=== PATIENT | female | born 1990 | race Caucasian/White ===

== ENCOUNTER 2018-10-21 12:29 | Day surgery (SDC) | payer OTHER ==
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
[2018-10-21 13:08] VITALS: BMI 22.6
[2018-10-21 13:09] VITALS: BP 149/101; TEMP 98.4
[2018-10-21 13:47] LABS: #Eosinphils 0.1 thou/uL (0.0-0.7); #Lymphocytes 1.1 thou/uL (1.20-3.40); #Monocytes 0.9 thou/uL (0.11-0.59); #Neutrophils 6.2 thou/uL (1.40-6.50); %Basophils 0.3 % (0.0-1.0); %Eosinophils 0.8 % (0.0-10.0); %Lymphocytes 13.6 % (21.0-51.0); %Monocytes 10.3 % (0.0-10.0); Mean Corpuscular HGB CONC 35.6 g/dL (32.0-36.0); Mean Corpuscular Hemoglobin 31.9 pg (27.0-31.0); Mean Corpuscular Volume 89.5 fL (78.0-98.0); Mean Platelet Volume 7.4 fL (7.4-10.4); Platelet Count 199 thou/uL (130-400); RBC Distribution Width 11.9 % (11.5-14.5); Red Blood Cell (RBC) Count 3.76 mill/uL (4.20-5.40); White Blood Cell (WBC) Count 8.3 thou/uL (4.8-10.8)
[2018-10-21 14:07] LABS: ALT (SGPT) 40 U/L (8-55); AST (SGOT) 23 U/L (5-34); Albumin 3.5 g/dL (3.5-5.0); Alkaline Phosphatase 183 U/L (40-150); Anion Gap 11 mmol/L (10-20); BUN (Urea Nitrogen) 5 mg/dL (7.0-18.7); Bilirubin, Total 0.4 mg/dL (0.2-1.2); Calc. Creatinine Clearance 124 mL/min (70-130); Calcium 8.6 mg/dL (7.8-10.44); Carbon Dioxide 21 mmol/L (22-29); Chloride 106 mmol/L (98-107); Estimated GFR-MDRD Greater than 90; Globulin 2.6 g/dL (2.4-3.5); Glucose 113 mg/dL (70-105); Potassium 3.3 mmol/L (3.5-5.1); Protein, Total 6.1 g/dL (6.0-8.3); Sodium 135 mmol/L (136-145)
[2018-10-21 14:24] LABS: Creatinine, Urine 90.75 mg/dL (47-110)
--- NOTE | 2018-10-21 14:41 | PDOC.EVN ---
Event Note - Event Note Event Note: Reviewed results: Urine prot:cr ratio 0.275 Creatinine 0.71 Platelet count 199 AST/ALT BPs: 140/92, 153/88, 146/87, 139/92, 134/89, 134/89 US results based on verbal report from rewind operator BPP: 12/24 MARY JANE 14.6 Growth: EFW 2489g measuring 35.1 WGA Will continue to monitor BP's for a total of 24 hours
--- NOTE | 2018-10-21 14:53 | ULT ---
ULTRASOUND BIOPHYSICAL PROFILE: 10/21/18 HISTORY: 28-year-old female with gestational hypertension and pre-eclampsia. FINDINGS: breathin tone: 2 movement: 2 Amniotic fluid volume: 2 IMPRESSION: Normal biophysical profile score of 8/8, excluding the non-stress test. jn [] POS: TPC
--- NOTE | 2018-10-21 15:08 | ULT ---
ULTRASOUND OBSTETRICAL COMPLETE: DATE: 10/21/2018. HISTORY: Gestational hypertension and preeclampsia in 28-year-old female. FINDINGS: number: [place]. lie: Cephalic. Maternal cervix: Obscured by shadowing from the head. Placenta: Right lateral. No placenta previa. Amniotic fluid volume: MARY JANE 14.5 cm. heart rate: 153 b.p.m. anatomy not evaluated in detail. biometry: Head circumference (HC): 32.4 cm 36 w 5 d Biparietal diameter (BPD): 3.6 cm 34 w 5 d Abdominal circumference (AC): 30.3 cm 34 w 2 d Femur length (FL): 6.7 cm 34 w 5 d Average ultrasound age (AUA): 35 w 1 d Estimated date of delivery (OMAR): 11/24/2018. Last menstrual period (LMP): 02/19/2018. Gestational age by LMP: 34, 6 d. Estimated weight (EFW): 2,489 g +/- 368 g (5 lb 8 oz +/- 13 oz). IMPRESSION: 1. Live third trimester intrauterine gestation. 2. Estimated gestational age of 35 weeks, 1 day. 3. Vertex lie. SUMIT Miranda POS: TPC
--- NOTE | 2018-10-21 16:59 | PDOC.EVN ---
Event Note - Event Note Event Note: BP's reviewed and no severe range pressures while being monitored over last 4 hours. Multiple mild range pressures. Patient asymptomatic Lab results normal Will d/c patient home with close f/u and instructed her to continue checking BP' s. Will send with 24 hour urine protein collection as prot:cr ratio close to 0.3. Gave return precautions
[2018-10-22 19:26] LABS: Urine Total Volume 2200 mL (600-1600)
[2018-10-22 19:56] LABS: Protein - 24 Hr 264 mg/24 hr (Less than 300); Protein, Urine 12 mg/dL (1-14)
== END 2018-10-21 17:15 | disposition home or self-care (01) ==
LOC: L&D/OP 12:29
PROVIDERS: ATTEND Family Medicine
DX: O16.3 Unspecified maternal hypertension, third trimester (principal); O26.843 Uterine size-date discrepancy, third trimester; O99.333 Smoking (tobacco) complicating pregnancy, third trimester; F17.210 Nicotine dependence, cigarettes, uncomplicated; Z3A.35 35 weeks gestation of pregnancy; Z79.82 Long term (current) use of aspirin
CPT/HCPCS: 36415; 76815; 76819; 80053; 82570; 84156; 85025; 99285

== ENCOUNTER 2018-11-10 15:26 | Inpatient (IN) | payer OTHER ==
[~2018-11-10 15:26] MED LIST: Bupivacaine/Epinephrine 0.25% 30 ML VIAL ONE
[2018-11-10] MEDS ORDERED: hydrALAZINE 20 MG/ML VIAL SLOW IVP PRN ×3 (15:33→19:31)
[2018-11-10] MEDS ORDERED: Ibuprofen 800 MG TAB PO PRN (15:36)
[2018-11-10] MEDS ORDERED: Lidocaine 1% (PF) 30 ML VIAL SC PRN (15:36)
[2018-11-10] MEDS ORDERED: NS / Oxytocin 40 units/1000ml 1,000 ML IV PRN (15:36)
[2018-11-10] MEDS ORDERED: Carboprost 250 MCG/ML AMP IM PRN (15:36)
[2018-11-10] MEDS ORDERED: Methylergonovine 0.2 MG/ML VIAL IM PRN (15:36)
[2018-11-10] MEDS ORDERED: Ondansetron PF 4 MG/2 ML Vial IVP PRN (15:36)
[2018-11-10] MEDS ORDERED: Misoprostol 200 MCG TAB PR PRN (15:36)
[2018-11-10] MEDS ORDERED: Diphenoxylate HCl/Atropine Tablet PO PRN ×2 (15:36)
[2018-11-10] MEDS ORDERED: Promethazine HCl 25 MG/ML VIAL IM PRN (15:36)
[2018-11-10] MEDS: Lactated Ringer's 1,000 ML IV SCH ×2 (16:08→20:58)
--- NOTE | 2018-11-10 16:17 | PDOC.LDHP ---
Labor and Delivery H&P Chief complaint: other (severe range BP in clinic) HPI: Ms. Leslie rai @ 37.5 wks by 6wk katherine (OMAR 11/26/18). presents as a direct transfer from clinic for severe BP readings and a non-reactive NST she has been feeling well today, baby moving like normal for her. She denies any vaginal bleeding/discharge, LOF, swelling, SOB, severe abdominal pain, nausea or vomiting. She reports a slight headache on the way over here from clinic but reports it to be resolved. She denies any changes to her vision or scomata. Dating criteria: first trimester ultrasound Grav: 1 Para: 0 Current complications: hypertension, other (S<D, recurrent UTI, ASCUS/ HPV+. prior PreE workup in hospital was negative) Previous surgical history: appendectomy, other ( gastroschesis) Allergies/Adverse Reactions: Allergies Allergy/AdvReac Type Severity Reaction Status Date / Time No Known Allergies Allergy Unverified 10/21/18 13:10 Social history: tobacco use (10-14 cigarettes a day) - Physical Exam Vital signs reviewed and normal: yes Abnormal vital signs: elevated BPs General: NAD Heart: RRR Lungs: CTAB Abdomen: gravid Extremeties: no edema FHT: category 1 (baseline 130, accels, no decels, moderate variability) - Vaginal Exam cm dilated: 3 Effacement: 50% Station: -2 - OB Labs Blood type: A RH: positive Antibody Screen: negative HIV: negative RPR: negative HEPSAg: negative GBS: negative Urine drug screen: not done Rubella: immune Additional Labs: as mentioned above - Assessment L&D Assessment: medically indicated induction - Plan Plan: admit to L&D -: sIUP - continuous monitoring - nonreactive NST in clinic - BPP pending - SVE favorable for cytotect induction - labor checks q4hr gHTN - most likely gHTN given hx. will obtain PreE labs - if pressures become severe range/symptoms develop, begin mag - medically indicated induction tobacco use during - encourage cessation Addendum - Attending - Attending Attestation Date/Time: 11/11/18 0842 I personally evaluated the patient and discussed the management with Dr. Conti on day of admission. I agree with the History, Examination, Assessment and Plan documented above with any addition or exceptions noted below. After discussion with the patient it appears that before she had elevated pressures in clinic but normal home pressures. This was also the case early in her . Her most recent pre-E workup was from >20 weeks when her home logs started demonstrating home BP elevations as well, strongly suggesting the diagnosis of gHTN. In that case we will plan for medically indicated induction regardless of labs. PreE labs sent, case discussed with Dr. Mann who will assume care for the night.
[2018-11-10 16:22] VITALS: BMI 22.6
[2018-11-10 16:30] LABS: Hemoglobin 12.6 g/dL (12.0-16.0); Mean Corpuscular Hemoglobin 31.6 pg (27.0-31.0); Mean Corpuscular Volume 90.3 fL (78.0-98.0); Mean Platelet Volume 7.9 fL (7.4-10.4); Platelet Count 230 thou/uL (130-400); RBC Distribution Width 12.2 % (11.5-14.5); Red Blood Cell (RBC) Count 3.99 mill/uL (4.20-5.40); White Blood Cell (WBC) Count 7.2 thou/uL (4.8-10.8)
[2018-11-10 16:49] LABS: #Eosinphils 0.1 thou/uL (0.0-0.7); #Lymphocytes 1.2 thou/uL (1.20-3.40); #Monocytes 0.8 thou/uL (0.11-0.59); #Neutrophils 5.1 thou/uL (1.40-6.50); %Basophils 0.4 % (0.0-1.0); %Eosinophils 1.1 % (0.0-10.0); %Lymphocytes 16.8 % (21.0-51.0); %Monocytes 11.3 % (0.0-10.0); %Neutrophils 70.5 % (42.0-75.0); ALT (SGPT) 59 U/L (8-55); AST (SGOT) 37 U/L (5-34); Albumin 3.5 g/dL (3.5-5.0); Alkaline Phosphatase 228 U/L (40-150); Anion Gap 13 mmol/L (10-20); BUN (Urea Nitrogen) 4 mg/dL (7.0-18.7); Bilirubin, Total 0.6 mg/dL (0.2-1.2); Calc. Creatinine Clearance 146 mL/min (70-130); Calcium 9.1 mg/dL (7.8-10.44); Carbon Dioxide 18 mmol/L (22-29); Chloride 106 mmol/L (98-107); Estimated GFR-MDRD Greater than 90; Globulin 2.6 g/dL (2.4-3.5); Glucose 75 mg/dL (70-105); Potassium 3.8 mmol/L (3.5-5.1); Protein, Total 6.1 g/dL (6.0-8.3); Sodium 133 mmol/L (136-145)
[2018-11-10 17:02] LABS: Syphilis Antibody Nonreactive (Nonreactive); Syphilis Antibody Index 0.07 S/CO (<1.00 Non-Reactive)
[2018-11-10 17:09] LABS: HBSAg Index 0.25 S/CO (0-0.99); Hep B Surf Ag Non-Reactive S/CO (NonReactive)
[2018-11-10 17:17] LABS: Creatinine, Urine 30.62 mg/dL (47-110); Protein, Urine Random Quant Less than 10 mg/dL (1-14)
--- NOTE | 2018-11-10 17:40 | ULT ---
Sonographic biophysical profile exam HISTORY: Nonreactive nonstress test. FINDINGS: Amniotic fluid index equals 20.5. Subjective polyhydramnios. During real-time sonography, good tone and gross movements were demonstrated. BREATHING MOVEMENTS NOT WELL VISUALIZED at sonography. Sonographic biophysical profile score 6/8.
[2018-11-10] MEDS: Misoprostol 100 MCG TAB VAG SCH (18:06)
[2018-11-10] MEDS ORDERED: Calcium Gluc 4.6 MEQ/10 ML (100 MG/ML) SLOW IVP PRN (19:17)
[2018-11-10] MEDS ORDERED: Magnesium Sulfate 20 gm/500 ml 20 GM/500 ML BAG ONE (19:19)
--- NOTE | 2018-11-10 19:25 | PDOC.EVN ---
Event Note - Event Note Event Note: Indeterminate urine pr/cr ratio since urine protein <10. However, LFT elevated, increased from baseline. No thrombocytopenia. Worsening of blood pressure to severe ranges. Will start magnesium at this time and give IV antihypertensives PRN for goal <160/<110. Continue with induction of labor. BPP 10/24, FHT cat I-II tracing at this time due to small periods of minimal variability. Will continue close monitoring and magnesium checks Addendum - Attending - Attending Attestation Date/Time: 11/10/182026 I personally evaluated the patient and discussed the management with Dr. Worthington I agree with the History, Examination, Assessment and Plan documented above with any addition or exceptions noted below. Persistent severe range blood pressures and increasing LFTs from baseline 2 weeks ago suggest progression from severe gestational htn to preeclampsia with severe features. Magnesium for seizure prophylaxis and prn IV antihypertensives for severe range BP. Cat I FHT. Anticipate
[2018-11-10] MEDS: Magnesium Sulfate 20 gm/500 ml 20 GM/500 ML BAG IVPB SCH (19:26)
[2018-11-10] MEDS ORDERED: Magnesium Sulfate 20 GM/WATER 500 ML BAG IVPB SCH (19:30)
[2018-11-10] MEDS ORDERED: Labetalol HCl 100 MG/20 ML VIAL SLOW IVP PRN (21:29)
--- NOTE | 2018-11-10 23:50 | PDOC.EVN ---
Event Note - Event Note Event Note: Magnesium check @2330 Denies DAO, SOB, chest pain, vision changes VS: Two severe BPs 160s x1, but repeat in 140s came down on own UO: >30cc/hr PE: RRR, CTAB, no edema, reflexes 2+ Fluids: LR @ 75 Magnesium: Mg at 2g/hr Continue plan of care Addendum - Attending - Attending Attestation Date/Time: 11/11/18 4742 I personally evaluated the patient and discussed the management with Dr. Worthington I agree with the History, Examination, Assessment and Plan documented above with any addition or exceptions noted below. Severe range blood pressures were during epidural placement and cuff was not placed correctly at that time. Repeat WNL. Tracing reviewed. Cat II for periods of minimal and moderate variability as well as rare late decel. Overall reassuring tracing.
--- NOTE | 2018-11-10 23:52 | PDOC.LDPN ---
Labor & Delivery Progress Note - Subjective Subjective: comfortable, vaginal pressure - Objective General: NAD, breathing through contractions Dilation: 3 Effacement: 50% Station: -2 FHT: late decelerations [place] contractions every: 2-3min Plan: continue plan of care -: sIUP -BPP 10/24 -FHT: two isolated late decelerations, CTX q2-3 hr, no cytotec for now -Patel 6, unchanged at 3/50/-2. Will recheck in two hours gHTN with likely superimposed preeclampsia -see event note -On magnesium started at 1930, q4hr mag checks -BPs stable, IV PRN hypertensives tobacco use during - encourage cessation
[2018-11-10] MEDS ORDERED: NS w/ Oxytocin 10 units 500 ML IV SCH (23:59)
[2018-11-11] MEDS: Misoprostol 100 MCG TAB VAG SCH ×5 (00:34→15:24)
[2018-11-11] MEDS ORDERED: Fentanyl 4 mcg/Bup 0.1% Cadd 100 ML ONE ×3 (00:39→17:16)
[2018-11-11] MEDS: Lactated Ringer's 1,000 ML IV SCH ×2 (01:18→03:02)
[2018-11-11] MEDS ORDERED: diphenhydrAMINE 50 MG/ML VIAL IVP PRN (02:21)
[2018-11-11] MEDS ORDERED: Lactated Ringer's 500 ML IV PRN (02:21)
[2018-11-11] MEDS ORDERED: Naloxone HCl 0.4 mg/ml Vial IVP PRN ×2 (02:21)
[2018-11-11] MEDS ORDERED: Acetaminophen 325 MG TAB PO PRN (02:21)
[2018-11-11] MEDS ORDERED: ePHEDrine/0.9% NaCl/PF SYRINGE 50 mg/10 ml SLOW IVP PRN (02:21)
[2018-11-11] MEDS ORDERED: Ondansetron PF 4 MG/2 ML Vial IVP PRN (02:21)
[2018-11-11] MEDS ORDERED: Promethazine HCl 25 MG/ML VIAL IM PRN (02:21)
[2018-11-11] MEDS ORDERED: Communication Order-Pharmacy FS SCH (02:30)
--- NOTE | 2018-11-11 02:46 | PDOC.LDPN ---
Labor & Delivery Progress Note - Subjective Subjective: comfortable - Objective Vital signs reviewed and normal: yes General: NAD, resting Dilation: 3 Effacement: 50% Station: -2 FHT: category 1 Plan: continue plan of care, pitocin for augmentation -: sIUP -BPP 10/24 -FHT: Cat I, CTX 2-3 irena -Patel 6, unchanged at 3/50/-2, start pitocin -Recheck in two hours -plans for epidural gHTN with likely superimposed preeclampsia -see event note -On magnesium started at 1930, q4hr mag checks -BPs stable, IV PRN hypertensives tobacco use during - encourage cessation
--- NOTE | 2018-11-11 02:49 | PDOC.EVN ---
Event Note - Event Note Event Note: Magnesium check @0230 Denies DAO, SOB, chest pain, vision changes VS: No severe range BPs, <160/<110 UO: >30cc/hr PE: RRR, CTAB, no edema, reflexes 2+ Fluids: LR @ 75 Magnesium: Mg at 2g/hr Continue plan of care
--- NOTE | 2018-11-11 02:53 | PDOC.LDPN ---
Labor & Delivery Progress Note - Subjective Subjective: comfortable - Objective Vital signs reviewed and normal: yes General: NAD, resting Uterine fundus: non tender Dilation: 3 Effacement: 50% Station: -2 FHT: category 2, variable decelerations [place] contractions every: 1-3min Plan: continue plan of care, labor augmentation, pitocin for augmentation -: sIUP, term -BPP 6/8 -FHT: CTX 2-3 min, few variable decels, per nurse this was during receiving epidural -Patel 6, unchanged at 3/50/-2, pit at 2, titrate up -Recheck in two hours -epidural in place gHTN with likely superimposed preeclampsia -see event note -On magnesium started at 1930, q4hr mag checks -BPs stable, IV PRN hypertensives tobacco use during - encourage cessation
[2018-11-11] MEDS: Magnesium Sulfate 20 gm/500 ml 20 GM/500 ML BAG IVPB SCH ×2 (03:57→13:47)
--- NOTE | 2018-11-11 05:46 | PDOC.LDPN ---
Labor & Delivery Progress Note - Subjective Subjective: comfortable - Objective Vital signs reviewed and normal: yes General: NAD, resting Uterine fundus: non tender Dilation: 3.5 Effacement: 50% (60) Station: -2 FHT: category 2, late decelerations [place] contractions every: 3-5min Resuscitative measures: maternal IV fluids, maternal position change Plan: continue plan of care, labor augmentation, pitocin for augmentation -: sIUP, term -BPP 6/8 -FHT: two isolated variable decels resolved with maternal position change -SVE: 3.5/60/-2, CTX have spaced out to q3-5min, pit at 4, will titrate up -Recheck in two-three hours -epidural in place gHTN with likely superimposed preeclampsia -pre E labs negative -On magnesium started at 1930, q4hr mag checks -No severe BPs ranging from 100s-130s tobacco use during - encourage cessation Addendum - Attending - Attending Attestation Date/Time: 11/11/18 3553 I personally evaluated the patient and discussed the management with Dr. Worthington I agree with the History, Examination, Assessment and Plan documented above with any addition or exceptions noted below. Strip reviewed and patient examined. FHTs 120s/periods of minimal and moderate variability/no recent decels/no recent accels CVX: 3/70/-2, ballottable Contractions-irregular with coupling + Acceleration to scalp stim Cat II Tracing for periods of minimal variability but overall reassuring as baby does still have accels to scalp stim. Minimal variability may be a result of her magnesium. Continue to titrate pitocin per protocol. BP has been mild range or normotensive. No evidence of magnesium toxicity
--- NOTE | 2018-11-11 05:50 | PDOC.EVN ---
Event Note - Event Note Event Note: Magnesium check @0530 Denies DAO, SOB, chest pain, vision changes. Patient with some pink tinged urine after schulte repositioning. Likely traumatic schulte, color has lightened with fluids. VS: No severe range BPs, <160/<110 UO: >30cc/hr PE: RRR, CTAB, no edema, reflexes 2+ Fluids: LR @ 75 Magnesium: Mg at 2g/hr Continue plan of care Recheck in 4 hours
[2018-11-11] MEDS: Fentanyl 4 mcg/Bupivacaine 0.1% Cassette 100 ML EPIDURAL SCH ×2 (09:28→17:29)
--- NOTE | 2018-11-11 11:30 | PDOC.LDPN ---
Labor & Delivery Progress Note - Subjective Subjective: comfortable, other (denies headache, vision changes, edema, scomata , numbness/tingling) - Objective Vital signs reviewed and normal: yes General: NAD Uterine fundus: non tender Dilation: 3.5 Effacement: 50% Station: -2 FHT: category 2 (baseline 120, minimal variability, few accels, no decels. ) [place] contractions every: q2-4 mins - Assessment (1) Hypertension affecting in third trimester Code(s): O16.3 - UNSPECIFIED MATERNAL HYPERTENSION, THIRD TRIMESTER Status: Acute (2) Tobacco smoking affecting in third trimester Code(s): O99.333 - SMOKING (TOBACCO) COMPLICATING , THIRD TRIMESTER Status: Acute (3) Uterine size date discrepancy Code(s): O26.849 - UTERINE SIZE-DATE DISCREPANCY, UNSPECIFIED TRIMESTER Status : Acute -: sIUP, term -FHT: Cat 1/Cat 2 strips likely seconder to magnesium -SVE: /-2, titrate pit as ctx tolerate -bulging bag, ballotable head not amenable to SROM, repeat exam q4hr -epidural in place gHTN with likely superimposed preeclampsia -pre E labs reveal elevation of LFTs from baseline, repeat pending -On magnesium started at 1930, q4hr mag checks -No severe BPs ranging from 100s-130s Mag check - no concern for ecclampsia or mag toxicity symptoms - urine output 330 over the past two hours, reflexes wnl - continue to monitor tobacco use during - encourage cessation /8 BPP with Cat1/2 strips - qshift NST continue expectant mgmt Addendum - Attending - Attending Attestation Date/Time: 11/11/18 1234 I personally evaluated the patient and discussed the management with Dr. Conti and [place]. I agree with the History, Examination, Assessment and Plan documented above with any addition or exceptions noted below. Overall reassuring status with FHTs cat 1. Change this last check. Continue mag, neuro/seizure precautions, mag checks. Recheck in 2 hours. Please note qshift NST is not correct. She is on continuous monitoring.
[2018-11-11 12:07] LABS: #Lymphocytes 0.9 thou/uL (1.20-3.40); #Monocytes 0.9 thou/uL (0.11-0.59); #Neutrophils 9.6 thou/uL (1.40-6.50); %Basophils 0.2 % (0.0-1.0); %Eosinophils 0.3 % (0.0-10.0); %Lymphocytes 8.2 % (21.0-51.0); %Monocytes 7.8 % (0.0-10.0); %Neutrophils 83.6 % (42.0-75.0); Hemoglobin 12.8 g/dL (12.0-16.0); Mean Corpuscular HGB CONC 34.6 g/dL (32.0-36.0); Mean Corpuscular Hemoglobin 31.6 pg (27.0-31.0); Mean Corpuscular Volume 91.2 fL (78.0-98.0); Mean Platelet Volume 7.9 fL (7.4-10.4); Platelet Count 218 thou/uL (130-400); RBC Distribution Width 12.5 % (11.5-14.5); Red Blood Cell (RBC) Count 4.05 mill/uL (4.20-5.40); White Blood Cell (WBC) Count 11.5 thou/uL (4.8-10.8)
[2018-11-11 12:50] LABS: ALT (SGPT) 73 U/L (8-55); AST (SGOT) 49 U/L (5-34); Albumin 3.3 g/dL (3.5-5.0); Alkaline Phosphatase 217 U/L (40-150); Anion Gap 12 mmol/L (10-20); BUN (Urea Nitrogen) 4 mg/dL (7.0-18.7); Bilirubin, Total 0.6 mg/dL (0.2-1.2); Calc. Creatinine Clearance 127 mL/min (70-130); Calcium 7.3 mg/dL (7.8-10.44); Carbon Dioxide 18 mmol/L (22-29); Chloride 105 mmol/L (98-107); Estimated GFR-MDRD Greater than 90; Glucose 89 mg/dL (70-105); Potassium 3.7 mmol/L (3.5-5.1); Protein, Total 6.3 g/dL (6.0-8.3); Sodium 131 mmol/L (136-145)
--- NOTE | 2018-11-11 14:24 | PDOC.LDPN ---
Labor & Delivery Progress Note - Subjective Subjective: comfortable - Objective Vital signs reviewed and normal: yes General: NAD Uterine fundus: non tender SVE: Dr. Dobson and nurse Dilation: 7 Effacement: 90% Station: -1 FHT: category 1 (Baseline 130s, Moderate Variability, No decels ) [place] contractions every: 3 minutes - Assessment (1) Term Code(s): Z34.90 - ENCNTR FOR SUPRVSN OF NORMAL , UNSP, UNSP TRIMESTER Current Visit: Yes Status: Acute Plan: continue plan of care, pitocin for augmentation -: 1. Term - Making cervical change - Will recheck in 2h - Continue supportive Care and Pitocin for augmentation Disposition: Stable, Continue current plan of care. Addendum - Attending - Attending Attestation Date/Time: 11/12/18 7882 I personally evaluated the patient and discussed the management with Dr. Dobson and team. I agree with the History, Examination, Assessment and Plan documented above with any addition or exceptions noted below.
[2018-11-11] MEDS ORDERED: Dextrose 5%-Lactated Ringers 1,000 ML IV SCH (14:45)
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
[2018-11-11] MEDS ORDERED: Lidocaine 1% (PF) 30 ML VIAL ONE (16:28)
[2018-11-11] MEDS ORDERED: NS / Oxytocin 40 units/1000ml 1,000 ML ONE (16:28)
[2018-11-11] MEDS ORDERED: Misoprostol 100 MCG TAB ONE (18:00)
[2018-11-11] MEDS ORDERED: Adacel (T-DAP) 0.5 ML SYRINGE IM ONE (19:08)
[2018-11-11] MEDS ORDERED: Lanolin Ointment 7 GM TUBE TOP PRN (19:08)
[2018-11-11] MEDS ORDERED: Benzocaine-Menthol 82.5 ML CAN TOP PRN (19:08)
[2018-11-11] MEDS ORDERED: Preparation H Ointment 28 GM TUBE PR PRN (19:08)
[2018-11-11] MEDS ORDERED: Milk Of Magnesia 30 ML UDCUP PO PRN (19:08)
[2018-11-11] MEDS ORDERED: Calcium Gluconate 4.6 MEQ in Sodium Chloride 0.9% 100 ML IVPB PRN (19:08)
[2018-11-11] MEDS ORDERED: hydrALAZINE 20 MG/ML VIAL SLOW IVP PRN (19:08)
[2018-11-11] MEDS ORDERED: diphenhydrAMINE 25 MG CAP PO PRN (19:08)
[2018-11-11] MEDS ORDERED: Bisacodyl 10 MG SUPP PR PRN (19:08)
[2018-11-11] MEDS ORDERED: NS / Oxytocin 40 units/1000ml 1,000 ML IV SCH (19:15)
[2018-11-11] MEDS ORDERED: Magnesium Sulfate 20 GM/WATER 500 ML BAG IVPB SCH (19:15)
--- NOTE | 2018-11-11 19:23 | PDOC.OPDEL ---
OB Operative/Delivery Note Delivery Dr/Surgeon: Mackenzie Hughes Pre-Delivery Diagnosis: medically indicated induction (preE with severe features ) Procedure/Post Delivery Dx: spontaneous vaginal delivery Weeks gestation: 37 (37.6) Anesthesia: epidural - Findings A Sex: female - 1 min: 8 - 5 min: 9 - Additional Findings/Plan Placenta delivered: spontaneous Repaired Obstetrical Laceration: 2nd degree (and a periurethral) Estimated blood loss: 800 Compilations/Other Findings: Delivering Physician: Johann English MD, PGY-2 Attending:Mackenzie Procedure: Spontaneous Vaginal Delivery Anesthesia: epidural EBL: 800 ml Pre-op Diagnosis: 1. Term intrauterine 2. PreEclampsia with severe features Post-op Diagnosis: 1. Term intrauterine , delivered 2. PreEclampsia with severe features Indications: A 28 y/o female G1 presents to L&D for severe range blood pressures , admitted and induced for preEclampsia with severe features. Delivery Note: This is 28yo F G1 @37.6wks who delivered a viable F infant at 0521. Following an antepartum course consistent with preE with severe features, a vigorous female was delivered over an intact perineum in the occipitoanterior position. Anterior Shoulder and then remainder of the body delivered. One nuchal cord. The head was held down and mouth and nares were bulb suctioned. Cord clamped (after delayed cord clamping) and cut and cord blood collected. Placenta delivered intact (in the Marquez presentation) with a 3 vessel cord noted. Fundal massage was performed and the fundus was found to have some atony. Pitocin was started, followed by cytotec 800 mcg IA, and then hemabate 250mcg IM x 1. The cervix and vagina were inspected and found to have one periurethral tear and one second degree laceration. Both repaired with a 3-0 Vicryl in the usual fashion with good approximation and hemostasis obtained. went to nursery in good condition for routine care. Apgars were 8 /9 at 1 & 5 minutes, respectively. Patient tolerated delivery well and went to after routine recovery/care. Estimated Blood Loss: 800ml Drains: Olivera to gravity draining clear urine. Post delivery plan: recovery in LICU Addendum - Attending - Attending Attestation Date/Time: 11/17/18 1207 I was present for and assisted in the entire and laceration repair performed by Dr. Johann English
[2018-11-11 20:00] LABS: Hemoglobin 10.6 g/dL (12.0-16.0); Mean Corpuscular HGB CONC 33.8 g/dL (32.0-36.0); Mean Corpuscular Hemoglobin 31.1 pg (27.0-31.0); Mean Platelet Volume 7.7 fL (7.4-10.4); Platelet Count 194 thou/uL (130-400); RBC Distribution Width 12.4 % (11.5-14.5); White Blood Cell (WBC) Count 17.5 thou/uL (4.8-10.8)
[2018-11-11] MEDS ORDERED: Diphenoxylate HCl/Atropine Tablet PO SCH (20:00)
[2018-11-11] MEDS: CEFAZOLIN 2 GM in Premix Bag 1 BAG IVPB SCH (20:11)
[2018-11-11] MEDS ORDERED: Morphine 4 MG/ML VIAL ONE (22:52)
[2018-11-11] MEDS ORDERED: Morphine 4 MG/ML VIAL SLOW IVP SCH (23:45)
[2018-11-11] MEDS: Ibuprofen 800 MG TAB PO SCH (23:48)
--- NOTE | 2018-11-12 00:41 | PDOC.EVN ---
Event Note - Event Note Event Note: Magnesium check @0000 Denies DAO, SOB, chest pain, vision changes. Some pain in right gluteal area- will give IV morphine since nauseous despite antiemetic VS: No severe range BPs, <160/<110 UO: >30cc/hr PE: RRR, CTAB, no edema, reflexes 2+ Fluids: LR @ 75 Magnesium: Mg at 2g/hr Continue plan of care Recheck in 4 hours
[2018-11-12] MEDS: Magnesium Sulfate 20 gm/500 ml 20 GM/500 ML BAG IVPB SCH ×2 (01:27→12:51)
[2018-11-12] MEDS: Docusate Calcium (SURFAK) 240 MG CAP PO SCH ×2 (03:37→09:34)
--- NOTE | 2018-11-12 04:53 | PDOC.EVN ---
Event Note - Event Note Event Note: Magnesium check @0430 Denies DAO, SOB, chest pain, vision changes. Some pain in right lower back much improved with tylenol. VS: No severe range BPs, <160/<110 UO: >30cc/hr PE: RRR, CTAB, no edema, reflexes 2+ Fluids: LR @ 75 Magnesium: Mg at 2g/hr Continue plan of care Recheck in 4 hours
[2018-11-12] MEDS: CEFAZOLIN 2 GM in Premix Bag 1 BAG IVPB SCH ×2 (04:54→11:58)
[2018-11-12] MEDS ORDERED: Diphenoxylate HCl/Atropine Tablet PO SCH (05:45)
[2018-11-12] MEDS: Ibuprofen 800 MG TAB PO SCH ×3 (06:32→21:33)
[2018-11-12] MEDS: Ferrous Sulfate 325 MG TAB PO SCH ×2 (08:11→17:09)
--- NOTE | 2018-11-12 08:38 | PDOC.PP ---
Post Progress Note Post Day #: 1 Subjective: Patient is feeling well. She reports mild pain in her back yesterday, but is resolved. She reports bleeding slightly heavier than a period. No other complaints. PO intake tolerated: yes (Clear liquids) Flatus: yes Ambulation: no (on Mg) Weight Weight 67.585 kg - Physical Examination General: NAD Cardiovascular: no m/r/g, RRR Respiratory: clear to auscultation bilaterally, non-labored breathing Abdominal: + bowel sounds, lochia, no distention, appropriately TTP Neurological: no gross focal deficits (DTRs WNL) Psychiatric: A&Ox3 Result Diagrams: 11/12/18 08:49 11/11/18 11:55 Additional Labs: Post Labs Blood Type A POSITIVE 11/10/18 17:50 Hep Bs Antigen Non-Reactive S/CO (NonReactive) 11/10/18 16:15 (1) Term delivered Code(s): O80 - ENCOUNTER FOR FULL-TERM UNCOMPLICATED DELIVERY Status: Acute (2) Gestational hypertension affecting third Code(s): O13.9 - GESTATIONAL HTN W/O SIGNIFICANT PROTEINURIA, UNSP TRIMESTER Status: Acute (3) Pre-eclampsia Code(s): O14.90 - UNSPECIFIED PRE-ECLAMPSIA, UNSPECIFIED TRIMESTER Status: Acute (4) Tobacco smoking affecting in third trimester Code(s): O99.333 - SMOKING (TOBACCO) COMPLICATING , THIRD TRIMESTER Status: Acute - Assessment/Plan 1. Term delivered - Routine care - QBL 800 - monitor H&H 2. Chronic HTN - Monitor BP - PRN available 3. Pre-Eclampsia: - Magnesium check @0830 - Denies DAO, SOB, chest pain, vision changes. - VS: normotensive BP, normal pulse - UO: >30cc/hr - PE:no edema, reflexes 2+ - Fluids: LR @ 75 - Magnesium: Mg at 2g/hr 4. Maternal tobacco use - Recommend cessation and continued cessation Disposition: Stable, - Continue plan of care - Recheck in 4 hours for 24 hours of total therapy following delivery. Addendum - Attending - Attending Attestation Date/Time: 11/12/18 7240 I personally evaluated the patient and discussed the management with Dr. Dobson and team. I agree with the History, Examination, Assessment and Plan documented above with any addition or exceptions noted below.
[2018-11-12] MEDS ORDERED: Prenatal Vitamin 1 TAB PO SCH (09:00)
[2018-11-12 09:12] LABS: Hemoglobin 9.2 g/dL (12.0-16.0); Mean Corpuscular HGB CONC 34.2 g/dL (32.0-36.0); Mean Corpuscular Hemoglobin 31.4 pg (27.0-31.0); Mean Corpuscular Volume 91.7 fL (78.0-98.0); Mean Platelet Volume 7.8 fL (7.4-10.4); Platelet Count 180 thou/uL (130-400); RBC Distribution Width 12.2 % (11.5-14.5); Red Blood Cell (RBC) Count 2.94 mill/uL (4.20-5.40); White Blood Cell (WBC) Count 9.3 thou/uL (4.8-10.8)
[2018-11-12 10:47] LABS: PTT 32.6 SEC (22.9-36.1); Prothrombin Time 13.5 SEC (12.0-14.7)
[2018-11-12 11:13] LABS: ALT (SGPT) 52 U/L (8-55); AST (SGOT) 40 U/L (5-34); Albumin 2.3 g/dL (3.5-5.0); Alkaline Phosphatase 136 U/L (40-150); Anion Gap 9 mmol/L (10-20); BUN (Urea Nitrogen) 4 mg/dL (7.0-18.7); Bilirubin, Total 0.3 mg/dL (0.2-1.2); Calc. Creatinine Clearance 139 mL/min (70-130); Calcium 5.7 mg/dL (7.8-10.44); Carbon Dioxide 19 mmol/L (22-29); Chloride 105 mmol/L (98-107); Estimated GFR-MDRD Greater than 90; Globulin 2.3 g/dL (2.4-3.5); Glucose 87 mg/dL (70-105); Potassium 3.9 mmol/L (3.5-5.1); Protein, Total 4.6 g/dL (6.0-8.3); Sodium 129 mmol/L (136-145)
[2018-11-12] MEDS ORDERED: Calcium Chloride 13.6 MEQ in Sodium Chloride 0.9% 100 ML IVPB SCH (12:15)
--- NOTE | 2018-11-12 12:43 | PDOC.EVN ---
Event Note - Event Note Event Note: - Magnesium check @1230 S: - Denies DAO, SOB, chest pain Transient double vision early today, but now resolved. O: - VS: normotensive BP, normal pulse BPs <130/80 - UO: >30cc/hr - PE: RRR, CTA, no edema, reflexes 2+ - Fluids: LR @ 75 - Magnesium: Mg at 2g/hr A/P: -Pre-E - Continue Q4h Mg checks for completion of 24 hour period post delivery - Discontinue Mg 1730
--- NOTE | 2018-11-12 15:53 | PDOC.EVN ---
Event Note - Event Note Event Note: Magnesium check @ 1600 Denies headache, SOB, chest pain, vision changes. Comfortable. VS: No severe range BPs UO: >30cc/hr PE: RRR, CTAB, no edema, reflexes 2+ Fluids: LR @ 75 Magnesium: Mg at 2g/hr Continue plan of care if no more severe range pressures, DC mag at 1727, ok to transfer to floor at that time
[2018-11-12] MEDS ORDERED: NS / Oxytocin 40 units/1000ml 1,000 ML IV SCH (18:01)
[2018-11-12] MEDS ORDERED: Bisacodyl 10 MG SUPP PR PRN (18:08)
[2018-11-12] MEDS ORDERED: Milk Of Magnesia 30 ML UDCUP PO PRN (18:08)
[2018-11-12] MEDS ORDERED: hydrALAZINE 20 MG/ML VIAL SLOW IVP PRN (18:08)
--- NOTE | 2018-11-12 18:29 | PDOC.EVN ---
Event Note - Event Note Event Note: Magnesium check @ 1830 Denies headache, SOB, chest pain, vision changes. Comfortable. VS: No severe range BPs UO: >30cc/hr PE: RRR, CTAB, no edema, reflexes 2+ Fluids: LR @ 75 Magnesium: Mg at 2g/hr Continue plan of care will d/c mag and transfer to
[2018-11-13] MEDS ORDERED: Acetaminophen 325 MG TAB PO PRN (01:50)
[2018-11-13] MEDS: Docusate Calcium (SURFAK) 240 MG CAP PO SCH ×3 (02:02→22:34)
[2018-11-13] MEDS: Ibuprofen 800 MG TAB PO SCH ×3 (05:02→22:33)
--- NOTE | 2018-11-13 07:17 | PDOC.OBPPN ---
FMR OB PN: Subj - Interval History Day: 2 Chief Complaint: 28 yo G1 @37.6 induced for severe range bp now s/p to a TAGA f Indentification: Doing well. Ambulating, eating, voiding, pain controlled. FMR OB PN: Obj - Maternal Vital signs: Selected Entries 11/12/18 11/13/18 22:00 01:40 Temperature 98.3 F Pulse Rate 94 Blood Pressure 148/85 H [Semi-Fowlers] Respiratory 18 Rate O2 Sat by Pulse 98 Oximetry Oxygen Delivery Room Air Method FMR OB PN: Exam - Physical Exam General: NAD, awake, alert and oriented HEENT: normocephalic and atraumatic Heart: RRR, normal S1/S2, no murmurs/rubs/gallops General: CTAB, no respiratory distress Abdomen: soft, non-tender Skin: no rash, good tugor Psychiatric: intact recent and remote memory FMR OB PN: Data - Labs Lab results: Laboratory Results - last 24 hr 11/12/18 11/12/18 11/12/18 08:49 10:26 10:26 WBC 9.3 RBC 2.94 L Hgb 9.2 L Hct 27.0 L MCV 91.7 MCH 31.4 H MCHC 34.2 RDW 12.2 Plt Count 180 MPV 7.8 PT 13.5 INR 1.0 APTT 32.6 Sodium 129 L Potassium 3.9 Chloride 105 Carbon Dioxide 19 L Anion Gap 9 L BUN 4 L Creatinine 0.63 Estimated GFR (MDRD) Greater than 90 Glucose 87 Calcium 5.7 L* Total Bilirubin 0.3 AST 40 H ALT 52 Alkaline Phosphatase 136 Serum Total Protein 4.6 L Albumin 2.3 L Globulin 2.3 L Albumin/Globulin Ratio 1.0 L FMR OB PN: A/P - Problem List (1) Term Current Visit: Yes Status: Acute Code(s): Z34.90 - ENCNTR FOR SUPRVSN OF NORMAL , UNSP, UNSP TRIMESTER (2) Pre-eclampsia Current Visit: Yes Status: Acute Code(s): O14.90 - UNSPECIFIED PRE-ECLAMPSIA , UNSPECIFIED TRIMESTER (3) Tobacco smoking affecting in third trimester Current Visit: No Status: Acute Code(s): O99.333 - SMOKING (TOBACCO) COMPLICATING , THIRD TRIMESTER Discussion: Date/Time: 11/13/18 0717 28 yo G1 @37.6wks induced for severe range bp, now s/p to a TAGA female. #sIUP, delivered #preE with severe features severe range bp initially, and increasing LFTs s/p magnesium, dc'd @ 1730 on 11/12 will continue to monitor bp off magnesium and evaluate pt's bp. currently 140s/ 90-100s overnight pt had a complicated with white coat htn vs chronic, but showed an increase in bp from baseline after 20 weeks consider late dc this afternoon, but likely tomorrow morning. Repeat hemagram showed H/H of 9.2 and 27.0. Will start oral iron po with stool softeners. Alla English MD, PGY-2 This H&P was discussed with [] and [] who agree with the above documentation and plan.
[2018-11-13] MEDS ORDERED: Adacel (T-DAP) 0.5 ML SYRINGE IM ONE (09:00)
[2018-11-13] MEDS: Ferrous Sulfate 325 MG TAB PO SCH ×2 (09:31→17:21)
[2018-11-14] MEDS: Ibuprofen 800 MG TAB PO SCH (06:45)
[2018-11-14 06:50] LABS: Hemoglobin 7.7 g/dL (12.0-16.0); Mean Corpuscular HGB CONC 34.6 g/dL (32.0-36.0); Mean Corpuscular Hemoglobin 31.9 pg (27.0-31.0); Mean Corpuscular Volume 92.3 fL (78.0-98.0); Mean Platelet Volume 7.2 fL (7.4-10.4); Platelet Count 215 thou/uL (130-400); RBC Distribution Width 12.1 % (11.5-14.5); Red Blood Cell (RBC) Count 2.41 mill/uL (4.20-5.40); White Blood Cell (WBC) Count 9.6 thou/uL (4.8-10.8)
--- NOTE | 2018-11-14 07:08 | PDOC.PP ---
Post Progress Note Post Day #: 3 Subjective: pt resting comfortably in bed. denies headache or vision changes PO intake tolerated: yes Flatus: yes Ambulation: yes Vital Signs (12 hours) Temp Pulse Resp BP Pulse Ox 11/13/18 20:00 98.1 F 92 17 152/89 H 100 Weight Weight 67.585 kg - Physical Examination General: NAD Cardiovascular: no m/r/g, RRR Respiratory: clear to auscultation bilaterally Neurological: no gross focal deficits (reflexes 2+, no clonus) Psychiatric: normal affect Result Diagrams: 11/14/18 06:16 11/12/18 10:26 Additional Labs: Post Labs Blood Type A POSITIVE 11/10/18 17:50 Hep Bs Antigen Non-Reactive S/CO (NonReactive) 11/10/18 16:15 (1) Hypertension affecting in third trimester Code(s): O16.3 - UNSPECIFIED MATERNAL HYPERTENSION, THIRD TRIMESTER Status: Acute (2) Tobacco smoking affecting in third trimester Code(s): O99.333 - SMOKING (TOBACCO) COMPLICATING , THIRD TRIMESTER Status: Acute (3) Uterine size date discrepancy Code(s): O26.849 - UTERINE SIZE-DATE DISCREPANCY, UNSPECIFIED TRIMESTER Status : Acute - Assessment/Plan 28 yo G1 @37.6wks induced for severe range bp, now s/p to a TAGA female. sIUP, delivered - routine PP care preE with severe features - severe range bp initially, and increasing LFTs - s/p magnesium, dc'd @ 1730 on 11/12 - will continue to monitor bp off magnesium Acute blood loss anemia - Hb 7.7, pt asymptomatic - supplement with oral iron DC today with acceptable BPs Addendum - Attending - Attending Attestation Date/Time: 11/14/18 1040 I personally evaluated the patient and discussed the management with Dr. Conti. I agree with the History, Examination, Assessment and Plan documented above with any addition or exceptions noted below. Overall reassuring picture. I discussed watching her here for 72 hours and she is relatively adamant about wanting to go home. We discussed risks and she voices understanding and return precautions. She has a BP cuff at home and follow up with us on 11/17.
[2018-11-14] MEDS: Ferrous Sulfate 325 MG TAB PO SCH (09:04)
[2018-11-14] MEDS: Docusate Calcium (SURFAK) 240 MG CAP PO SCH (09:04)
[2018-11-14 09:34] VITALS: BP 150/74; TEMP 98.1
== END 2018-11-14 12:15 | disposition home or self-care (01) | DRG 806 ==
LOC: L&D 15:26 → 3SW 11-12 22:56
PROVIDERS: ADMIT Emergency Medicine; ATTEND Emergency Medicine
PROC: 10E0XZZ Delivery of Products of Conception, External Approach (ICD-10-PCS; principal; 2018-11-11)
PROC: 0KQM0ZZ Repair Perineum Muscle, Open Approach (ICD-10-PCS; 2018-11-11)
PROC: 3E0P7VZ Introduction of Hormone into Female Reproductive, Via Natural or Artificial Opening (ICD-10-PCS; 2018-11-11)
DX: O14.14 Severe pre-eclampsia complicating childbirth (principal); D62 Acute posthemorrhagic anemia; Z37.0 Single live birth; O99.334 Smoking (tobacco) complicating childbirth; F17.210 Nicotine dependence, cigarettes, uncomplicated; O69.81X0 Labor and delivery complicated by cord around neck, without compression, not applicable or unspecified; O62.2 Other uterine inertia; O71.82 Other specified trauma to perineum and vulva; O70.1 Second degree perineal laceration during delivery; O26.843 Uterine size-date discrepancy, third trimester; Z3A.37 37 weeks gestation of pregnancy; O99.02 Anemia complicating childbirth
CPT/HCPCS: 36415; 51702; 59025; 76815; 76819; 80053; 82570; 83735; 84156; 84550; 85025; 85027; 85610; 85730; 86780; 86850; 86900; 86901; 87340; 90715; J0360; J0690; J2001; J2270; J2405; J2550; J2590; J3475; J3490